=== PATIENT | male | born 1960 | race Caucasian/White ===

== ENCOUNTER 2018-11-25 15:38 | Emergency (ER) | payer MEDICARE, MEDICAID ==
[~2018-11-25] VITALS: Ht 177.8 cm; Wt 88.6 kg
[2018-11-25 15:47] VITALS: Ht 177.8 cm; Wt 88.6 kg
[2018-11-25] MEDS ORDERED: ASPI-817 PO (20:13)
[2018-11-25] MEDS ORDERED: TYL500 PO (20:13)
[2018-11-25] MEDS ORDERED: ROSU20TA PO (20:14)
[2018-11-25] MEDS ORDERED: morphine 4 MG/ML VIAL IV STA (20:14)
[2018-11-25] MEDS ORDERED: ONDANSETRON 4 MG INJ IV STA (20:14)
[2018-11-25] MEDS ORDERED: LISI-471 PO (20:14)
[2018-11-25] MEDS ORDERED: CARV25TA79 PO (20:14)
[2018-11-25] MEDS ORDERED: OMEG1CAP2 PO (20:15)
[2018-11-25] MEDS ORDERED: TAMS0.4C2 PO (20:15)
[2018-11-25] MEDS ORDERED: OMEP20CA16 PO (20:15)
[2018-11-25] MEDS ORDERED: BIMA5DRO BOTH EYES (20:16)
[2018-11-25] MEDS ORDERED: PRED5DRO20 BOTH EYES (20:16)
[2018-11-25] MEDS ORDERED: ZOLP10TA PO (20:17)
[2018-11-25] MEDS ORDERED: LORA1TAB PO (20:17)
[2018-11-25] MEDS ORDERED: CARI350T29 PO (20:18)
[2018-11-25] MEDS ORDERED: [UNRECOGNIZED DRUG - OTHER] PO (20:21)
[2018-11-25] MEDS ORDERED: SOD CHLORIDE 0.9% 1,000 ML IV STA (21:13)
[2018-11-25] MEDS ORDERED: HYDROmorphONE 2 MG/ML SYG IV ONE (22:06)
--- NOTE | 2018-11-25 22:07 | ERD ---
ER Documentation Chief Complaint Chief Complaint diarrhea, ap starting today, HPI Patient is a 57-year-old male with HIV and esophageal cancer who presents with complaints. He said that he had low sodium in the past. He says "I was not thinking right". He said that he started with diarrhea yesterday and had a headache. He has cramps in his legs bilaterally. His symptoms have been constant and worsening. He tried Tylenol. He was brought in by ambulance. He does live with his . Upon review of old medical records the patient has multiple visits to the ER at [facility]. Review of the emergency department information exchange system shows visits to 3 separate emergency department and he was just at [place] emergency department today for chest pain. He does have a primary doctor. ROS All systems reviewed and are negative except as per history of present illness. Medications Home Meds Reported Medications [Prosvent-Natural] No Conflict Check, 1 TAB PO BID PROSVENT-NATURAL PROSTATE HEALTH AND SUPPORT URINARY FUNCTION. 11/25/18 Carisoprodol* (Carisoprodol*) 350 Mg Tablet, 350 MG PO Q8 PRN for MUSCLE SPASMS, TAB 11/25/18 Zolpidem Tartrate* (Ambien*) 10 Mg Tablet, 10 MG PO QHS PRN for INSOMNIA, TAB 11/25/18 Lorazepam* (Lorazepam*) 1 Mg Tablet, 1 MG PO TID PRN for ANXIETY, #60 TAB 11/25/18 Bimatoprost* (Lumigan*) 0.01%-5 Ml Opht Drops, 1 DROP BOTH EYES HS, EA 11/25/18 Prednisolone Acetate* (Pred Forte*) 5 Ml Susp, 1 DROP BOTH EYES QID, EA 11/25/18 [place]-3 Acid Ethyl Esters (Lovaza) 1 Gm Capsule, 2 GM PO BID, CAP 11/25/18 Tamsulosin Hcl* (Tamsulosin Hcl*) 0.4 Mg Cap.er.24h, 0.4 MG PO HS, CAP 11/25/18 Omeprazole* (Omeprazole*) 20 Mg Capsule.dr, 20 MG PO DAILY, #30 CAP 11/25/18 Rosuvastatin Calcium* (Crestor*) 20 Mg Tablet, 20 MG PO QHS, #30 TAB 11/25/18 Carvedilol* (Carvedilol*) 25 Mg Tablet, 25 MG PO BID, #60 TAB 11/25/18 Lisinopril* (Lisinopril*) 20 Mg Tablet, 20 MG PO BID, #30 TAB 11/25/18 Aspirin* (Aspirin* EC) 81 Mg Tablet.dr, 81 MG PO DAILY, TAB 11/25/18 Acetaminophen* (Tylenol*) 500 Mg Tab, 500 MG PO NEEDED PRN for MILD PAIN LEVEL 1-3, TAB 11/25/18 Allergies Allergies: Coded Allergies: ketorolac (Unverified Allergy, Unknown, 11/25/18) PMhx/Soc History of Surgery: Yes (Bilat feet sx, bilat eye sx, gisela, appy, umbilical/rt inguinal hernia repa) Anesthesia Reaction: No Hx Neurological Disorder: No Hx Respiratory Disorders: No Hx Cardiac Disorders: No Hx Psychiatric Problems: No Hx Miscellaneous Medical Probl: Yes (adrenal insuff, HIV, legally blind) Hx Alcohol Use: No Hx Substance Use: No Hx Tobacco Use: No Smoking Status: Never smoker FmHx Family History: diabetes Physical Exam Vitals Vital Signs Date Temp Pulse Resp B/P (MAP) Pulse Ox O2 O2 Flow FiO2 Time Delivery Rate 11/25/18 98.0 72 16 118/76 99 Room Air 22:35 (90) 11/25/18 98.0 73 16 114/72 99 Room Air 22:19 (86) 11/25/18 98.0 73 18 137/86 100 Room Air 19:25 (103) 11/25/18 98.0 76 18 133/90 99 15:47 (104) Physical Exam Const: Moderate distress secondary to pain Head: Atraumatic Eyes: Opacification of both eyes with blindness chronically ENT: Normal External Ears, Nose and Mouth. Neck: Full range of motion. No meningismus. Resp: Clear to auscultation bilaterally Cardio: Regular rate and rhythm, no murmurs Abd: Soft, non tender, non distended. Normal bowel sounds Skin: No petechiae or rashes Back: No midline or flank tenderness Ext: No cyanosis, or edema Neur: Awake and alert Psych: Normal Mood and Affect Result Diagram: 11/25/18194811/25/181948 Results 24 hrs Laboratory Tests Test 11/25/18 19:49 White Blood Count 8.3 10^3/ul Red Blood Count 5.13 10^6/ul Hemoglobin 15.7 g/dl Hematocrit 45.4 % Mean Corpuscular Volume 88.5 fl Mean Corpuscular Hemoglobin 30.6 pg Mean Corpuscular Hemoglobin Concent 34.6 g/dl Red Cell Distribution Width 13.8 % Platelet Count 237 10^3/UL Mean Platelet Volume 9.3 fl Immature Granulocytes % 0.500 % Neutrophils % 58.1 % Lymphocytes % 31.6 % Monocytes % 8.8 % Eosinophils % 0.5 % Basophils % 0.5 % Nucleated Red Blood Cells % 0.0 /100WBC Immature Granulocytes # 0.040 10^3/ul Neutrophils # 4.8 10^3/ul Lymphocytes # 2.6 10^3/ul Monocytes # 0.7 10^3/ul Eosinophils # 0.0 10^3/ul Basophils # 0.0 10^3/ul Nucleated Red Blood Cells # 0.0 10^3/ul Urine Color STRAW Urine Clarity CLEAR Urine pH 6.0 Urine Specific [place] 1.008 Urine Ketones NEGATIVE mg/dL Urine Nitrite NEGATIVE mg/dL Urine Bilirubin NEGATIVE mg/dL Urine Urobilinogen NEGATIVE mg/dL Urine Leukocyte Esterase NEGATIVE Idris/ul Urine Microscopic RBC 1 /HPF Urine Microscopic WBC 0 /HPF Urine Bacteria FEW /HPF Urine Hemoglobin 1+ mg/dL Urine Glucose NEGATIVE mg/dL Urine Total Protein 1+ mg/dl Sodium Level 129 mmol/L Potassium Level 5.5 mmol/L Chloride Level 97 mmol/L Carbon Dioxide Level 21 mmol/L Anion Gap 11 Blood Urea Nitrogen 8 mg/dl Creatinine 0.97 mg/dl Est Glomerular Filtrat Rate mL/min > 60 mL/min Glucose Level 101 mg/dl Calcium Level 9.9 mg/dl Total Bilirubin 0.3 mg/dl Direct Bilirubin 0.00 mg/dl Indirect Bilirubin 0.3 mg/dl Aspartate Amino Transf (AST/SGOT) 42 IU/L Alanine Aminotransferase (ALT/SGPT) 14 IU/L Alkaline Phosphatase 66 IU/L Total Protein 9.6 g/dl Albumin 5.3 g/dl Globulin 4.30 g/dl Albumin/Globulin Ratio 1.23 Lipase 83 U/L Current Medications Medications Dose Sig/Megan Start Time Status Last (Trade) Ordered Route PRN Stop Time Admin Dose Reason Admin Morphine 4 mg ONCE STAT 11/25/18 DC 11/25/18 Sulfate IV 20:14 11/25/18 20:41 (morphine) 20:16 Ondansetron 4 mg ONCE STAT 11/25/18 DC 11/25/18 HCl (Zofran IV 20:14 11/25/18 20:41 Inj) 20:16 Sodium 1,000 ml @ Q1H STAT 11/25/18 DC 11/25/18 Chloride 1,000 mls/hr IV 21:13 11/25/18 21:57 22:12 1 mg ONCE ONCE 11/25/18 DC 11/25/18 Hydromorphone IV 22:06 11/25/18 22:11 HCl 22:07 (Dilaudid) Procedures/MDM EKG read by me: Rate/Rhythm: Regular rate and rhythm at a rate of 72 Intervals: Normal Impression: No evidence of ischemia or arrhythmia CT brain negative for bleed or mass per radiology. Patient is a 57-year-old male who presents with diarrhea and headache. Laboratory studies were basically normal with a sodium of 129. The patient was given 1 L of normal saline for fluid resuscitation. He was given morphine and Dilaudid for pain as well as Zofran for nausea and vomiting. CT brain shows no sign of surgical process. At this point I believe outpatient management is appropriate. There may be an element of drug-seeking behavior in this case. The patient can return for any worsening symptoms. I believe outpatient management is appropriate but I do not think the patient requires further workup or admission to the hospital at this time. Departure Diagnosis: Primary Impression: Chronic pain Chronic pain type: other chronic pain Qualified Codes: G89.29 - Other chronic pain Additional Impressions: Diarrhea Diarrhea type: unspecified type Qualified Codes: R19.7 - Diarrhea, unspecified Headache Headache type: unspecified Headache chronicity pattern: acute headache Intractability: not intractable Qualified Codes: R51 - Headache Condition: Fair Patient Instructions: Chronic Pain Referrals: Your doctor Additional Instructions: Call your primary care doctor TOMORROW for an appointment during the next 1-2 days.See the doctor sooner or return here if your condition worsens before your appointment time. CARLOS HERRERA MD Nov 25, 2018 22:07
[2018-11-25 22:35] VITALS: BP 118/76; PULSE 72; RESP 16
== END 2018-11-25 22:33 | disposition home or self-care (01) ==
LOC: E/R 15:38
DX: R19.7 Diarrhea, unspecified (principal); G89.29 Other chronic pain; R51 Headache; R10.9 Unspecified abdominal pain; Z21 Asymptomatic human immunodeficiency virus [HIV] infection status; Z79.82 Long term (current) use of aspirin; Z85.01 Personal history of malignant neoplasm of esophagus
CPT/HCPCS: 36415; 70450; 80053; 81001; 83690; 85025; 93005; 96374; 96375; 99285; J1170; J2270; J2405; J7030